=== PATIENT | female | born 1930 | race Asian ===

== ENCOUNTER 2017-01-07 20:21 | Inpatient (IN) | payer MEDICARE, OTHER ==
[~2017-01-07] VITALS: Ht 170.2 cm; Wt 68.1 kg
[~2017-01-07 20:21] MED LIST: ASPIRIN E.C. 8181 MG PO; CALCIUM 500 + D1 TA1 PO; CARDI-OMEGA1000 MG PO; CENTRUM SILVER1 CTB PO; CEPHALEXIN500 M1 PO; CLARITIN 1010 MG/TAB PO; CRESTOR20 MG PO; DETROL LA4 PO; GLUCOSAMINE500 M1 PO; HCTZ 25MG TAB25 MG PO; KONSYL0.52 GM PO; LUTEIN PO; MELATONIN1 M1 PO; METAMUCIL1 PDR PO; MICARDIS80 MG PO; NORFLEX 10100 MG/TAB PO; PRILOTC PO; TENORMIN 2525 MG/TAB PO; TOPROL XL100 MG PO; TRICOR145 MG PO; UNISOM25 MG PO; ZANTAC 150MG T150 MG PO
[2017-01-07 21:07] VITALS: O2SAT 99
[2017-01-07 22:00] LABS: PH 7 (5-8); SQUAMOUS EPITHELIAL 0-2 /hpf; URINE APPEARANCE Clear; URINE BACTERIA None Seen /hpf; URINE BILIRUBIN Negative (NEGATIVE); URINE BLOOD Negative (NEGATIVE); URINE COLOR Straw; URINE GLUCOSE Negative (NEGATIVE); URINE KETONE Negative (NEGATIVE); URINE RBC 0-2 /hpf; URINE UROBILINOGEN Negative (NEGATIVE); URINE WBC 0-2 /hpf
[2017-01-07 22:04] LABS: ADJUSTED CALCIUM 9.1 mg/dL (8.4-10.2); BILIRUBIN,TOTAL 0.9 mg/dL (0.0-1.0); CALCIUM 9.1 mg/dL (8.4-10.2); CREATININE, serum 0.87 mg/dL (0.52-1.25); MAGNESIUM 1.7 mg/dL (1.6-2.3); POTASSIUM 3.8 mmol/L (3.4-5.0); TOTAL PROTEIN 7.1 gm/dL (6.4-8.2)
[2017-01-07 22:10] VITALS: BP 150/81; PULSE 93; TEMP 96.9
[2017-01-07] MEDS ORDERED: ASPIRIN 81M81 MG/TA2 PO (22:17)
[2017-01-07] MEDS ORDERED: DETROL LA4 PO (22:18)
[2017-01-07] MEDS ORDERED: CENTRUM SILVER1 CTB PO (22:18)
[2017-01-07] MEDS ORDERED: OMEGA-3 1000 MG1 CAP PO (22:19)
[2017-01-07] MEDS ORDERED: KONSYL6 GM/DOSE PO (22:27)
[2017-01-07] MEDS ORDERED: GLUCOSAMINE 1000 PO (22:27)
[2017-01-07] MEDS ORDERED: LUTEIN6 MG PO (22:28)
[2017-01-07] MEDS ORDERED: CLARITIN 1010 MG/TAB PO (22:28)
[2017-01-07] MEDS ORDERED: MICARDIS40 MG PO (22:30)
[2017-01-07] MEDS ORDERED: METAMUCIL MUL0.52 GM PO (22:30)
[2017-01-07] MEDS ORDERED: NORFLEX 10100 MG/TAB PO (22:31)
[2017-01-07] MEDS ORDERED: OSCAL 500 TAB500 MG PO (22:31)
[2017-01-07] MEDS ORDERED: PRESERVISION1 SGL PO (22:32)
[2017-01-07] MEDS ORDERED: PRILOSEC 20MG20 MG PO (22:33)
[2017-01-07] MEDS ORDERED: ZANTAC 150MG T150 MG PO (22:33)
[2017-01-07 22:34] LABS: THYROID STIMULATING HORMONE 1.78 uIU/mL (0.465-4.680)
[2017-01-07] MEDS ORDERED: TOPROL XL100 MG PO (22:34)
[2017-01-07] MEDS ORDERED: UNISOM25 MG PO (22:34)
[2017-01-07] MEDS ORDERED: PRAVACHOL 40MG40 MG PO (22:35)
[2017-01-08] VITALS (689 sets, daily range): BP systolic 99–133; BP diastolic 67–75; PULSE 54–110; TEMP 97.3–98.7; O2SAT 79–100
[2017-01-08 05:27] LABS: BASO # 0.1 (0.0-0.2); EOS # 0.3 (0.0-0.7); EOS % 4.4 % (0-4.0); GRAN # 3.6 (1.4-6.5); GRAN % 60.1 % (42.2-75.2); HEMATOCRIT 39.5 % (37.0-47.0); HEMOGLOBIN 13.9 g/dl (12.5-16.0); LYMPH # 1.5 (1.2-3.4); LYMPH % 24.7 % (20.0-51.0); MEAN CELL VOLUME 92 fl (80.0-100.0); MEAN CORPUSCULAR HEMOGLOBIN 33 pg (27.0-31.0); MEAN CORPUSCULAR HGB CONC 35 g/dl (33.0-37.0); MEAN PLATELET VOLUME 9.7 fl (7.4-10.4); MONO # 0.6 (0.1-0.6); MONO % 9.6 % (1.7-9.3); PLATELET COUNT 186 K/mm3 (130-400); RED BLOOD COUNT 4.28 M/mm3 (4.10-5.30); REDCELL DISTRIBUTION WIDTH-CV 12.3 % (11.5-14.5)
[2017-01-08 05:44] LABS: CALCIUM 9.1 mg/dL (8.4-10.2); CREATININE, serum 0.77 mg/dL (0.52-1.25); POTASSIUM 3.8 mmol/L (3.4-5.0)
[2017-01-09] VITALS (565 sets, daily range): BP systolic 139–149; BP diastolic 78–93; PULSE 49–59; TEMP 97–98.4; O2SAT 81–100
[2017-01-09 08:28] LABS: HEMATOCRIT 39.4 % (37.0-47.0); HEMOGLOBIN 13.8 g/dl (12.5-16.0); MEAN CELL VOLUME 94 fl (80.0-100.0); MEAN CORPUSCULAR HEMOGLOBIN 33 pg (27.0-31.0); MEAN CORPUSCULAR HGB CONC 35 g/dl (33.0-37.0); MEAN PLATELET VOLUME 9.6 fl (7.4-10.4); PLATELET COUNT 172 K/mm3 (130-400); RED BLOOD COUNT 4.21 M/mm3 (4.10-5.30); REDCELL DISTRIBUTION WIDTH-CV 12.4 % (11.5-14.5); WHITE BLOOD COUNT 6.2 K/mm3 (4.8-10.8)
[2017-01-09 08:35] LABS: CALCIUM 9.1 mg/dL (8.4-10.2); CREATININE, serum 0.76 mg/dL (0.52-1.25)
[2017-01-09] MEDS ORDERED: PACERONE200 MG PO (15:45)
[2017-01-09] MEDS ORDERED: TOPROL XL100 MG PO (15:48)
== END 2017-01-09 17:00 | disposition home or self-care (01) | DRG 310 ==
LOC: ICU 20:21
PROVIDERS: Family Medicine; Internal Medicine
DX: I47.2 Ventricular tachycardia (principal); I10 Essential (primary) hypertension; E78.5 Hyperlipidemia, unspecified; Z87.891 Personal history of nicotine dependence; Z95.810 Presence of automatic (implantable) cardiac defibrillator; X30.XXXA Exposure to excessive natural heat, initial encounter
CPT/HCPCS: 99222-AI; 99233-AI; 99239; J0282; J1650; J3475; J7060

== ENCOUNTER 2017-07-29 10:28 | Inpatient (IN) | payer MEDICARE, OTHER ==
[~2017-07-29] VITALS: Ht 167.6 cm; Wt 63.5 kg
[~2017-07-29 10:28] MED LIST changes: +ASPIRIN 81M81 MG/TA2 PO; +GLUCOSAMINE 1000 PO; +KONSYL6 GM/DOSE PO; +LUTEIN6 MG PO; +METAMUCIL MUL0.52 GM PO; +MICARDIS40 MG PO; +OMEGA-3 1000 MG1 CAP PO; +OSCAL 500 TAB500 MG PO; +PACERONE200 MG PO; +PRAVACHOL 40MG40 MG PO; +PRESERVISION1 SGL PO; +PRILOSEC 20MG20 MG PO
[2017-07-29 12:16] VITALS: BP 98/56; PULSE 109; TEMP 97.4
[2017-07-29] MEDS ORDERED: OSCAL W/VIT D250 MG PO (12:34)
[2017-07-29] MEDS ORDERED: HCTZ 25MG TAB25 MG PO (12:36)
[2017-07-29] MEDS ORDERED: LUTEIN20 M1 PO (12:37)
[2017-07-29] MEDS ORDERED: MASON NATURAL1200 MG PO (12:59)
[2017-07-29] MEDS ORDERED: GLUCOSAMINE MSM1 TAB PO (12:59)
[2017-07-29] MEDS ORDERED: UNISOM25 MG PO (13:00)
[2017-07-29] MEDS ORDERED: CLARITIN 1010 MG/TAB PO (13:01)
[2017-07-29] MEDS ORDERED: LOPRESSOR100 MG PO (13:03)
[2017-07-29] MEDS ORDERED: MUCUS RELIEF200 MG PO (13:05)
[2017-07-29] MEDS ORDERED: TRIAMCINOLONE A15 G1 TP (13:05)
[2017-07-29] MEDS ORDERED: LASIX 20MG TABL20 MG PO (13:06)
[2017-07-29] MEDS ORDERED: SINGULAIR 110 MG/TAB PO (13:06)
[2017-07-29] MEDS ORDERED: NORVASC 5MG5 MG/TAB PO (13:07)
[2017-07-29] MEDS ORDERED: CELEBREX 200MG200 MG PO (13:07)
[2017-07-29] MEDS ORDERED: FLONASE NASAL S16 GM NS (13:07)
[2017-07-29] MEDS ORDERED: TUSS PO (13:08)
[2017-07-29] MEDS ORDERED: TESSALON P100 MG/CAP PO (13:08)
[2017-07-29] MEDS ORDERED: ROXICODONE 55 MG/TAB PO (13:09)
[2017-07-29 15:47] LABS: HEMOGLOBIN 13.2 g/dl (12.5-16.0)
[2017-07-29 16:17] VITALS: BP 103/64; PULSE 110; TEMP 97.9
[2017-07-29 17:32] LABS: COLLECTION METHOD CLEAN CATCH
[2017-07-29 17:36] LABS: PH 5 (5-8); URINE APPEARANCE Clear; URINE BILIRUBIN Negative (NEGATIVE); URINE BLOOD Negative (NEGATIVE); URINE COLOR Amber; URINE GLUCOSE Negative (NEGATIVE); URINE KETONE Trace (NEGATIVE); URINE LEUKOCYTE ESTERASE Trace (NEGATIVE); URINE NITRATE Negative (NEGATIVE); URINE PROTEIN(semi-quant) Negative (NEGATIVE)
[2017-07-29 17:47] LABS: MUCOUS Present /lpf; SQUAMOUS EPITHELIAL 0-2 /hpf; URINE RBC None Seen /hpf
[2017-07-29 19:48] VITALS: BP 103/58; PULSE 117; TEMP 97.3
[2017-07-29 23:26] LABS: HEMOGLOBIN 12.1 g/dl (12.5-16.0)
[2017-07-29 23:27] VITALS: BP 88/50; PULSE 117; TEMP 97.7
[2017-07-29 23:28] LABS: HEMATOCRIT 36.6 % (37.0-47.0)
[2017-07-30] VITALS (7 sets, daily range): BP systolic 95–129; BP diastolic 47–54; PULSE 74–84; TEMP 97.4–98.3
[2017-07-30 06:55] LABS: BASO # 0.1 (0.0-0.2); EOS # 0.2 (0.0-0.7); GRAN # 3.5 (1.4-6.5); GRAN % 69.9 % (42.2-75.2); HEMATOCRIT 37.6 % (37.0-47.0); HEMOGLOBIN 12.1 g/dl (12.5-16.0); LYMPH # 0.8 (1.2-3.4); LYMPH % 16.5 % (20.0-51.0); MEAN CELL VOLUME 104 fl (80.0-100.0); MEAN CORPUSCULAR HEMOGLOBIN 34 pg (27.0-31.0); MEAN CORPUSCULAR HGB CONC 32 g/dl (33.0-37.0); MEAN PLATELET VOLUME 9.3 fl (7.4-10.4); MONO # 0.4 (0.1-0.6); MONO % 8.2 % (1.7-9.3); PLATELET COUNT 267 K/mm3 (130-400); RED BLOOD COUNT 3.61 M/mm3 (4.10-5.30); REDCELL DISTRIBUTION WIDTH-CV 13.8 % (11.5-14.5)
[2017-07-30 07:19] LABS: BILIRUBIN,TOTAL 0.8 mg/dL (0.0-1.0); CALCIUM 8.3 mg/dL (8.4-10.2); CREATININE, serum 1.3 mg/dL (0.52-1.25); MAGNESIUM 2.2 mg/dL (1.6-2.3); POTASSIUM 4.7 mmol/L (3.4-5.0)
[2017-07-30 15:40] LABS: HEMATOCRIT 34.9 % (37.0-47.0); HEMOGLOBIN 11.5 g/dl (12.5-16.0)
[2017-07-30 23:18] LABS: HEMOGLOBIN 11.9 g/dl (12.5-16.0)
[2017-07-31 03:55] VITALS: BP 126/55; PULSE 78; TEMP 98.2
[2017-07-31 06:50] LABS: BASO # 0.1 (0.0-0.2); EOS # 0.2 (0.0-0.7); EOS % 3.7 % (0-4.0); GRAN # 3.4 (1.4-6.5); GRAN % 70.8 % (42.2-75.2); HEMATOCRIT 33.7 % (37.0-47.0); HEMOGLOBIN 10.8 g/dl (12.5-16.0); LYMPH # 0.8 (1.2-3.4); LYMPH % 16.3 % (20.0-51.0); MEAN CELL VOLUME 102 fl (80.0-100.0); MEAN CORPUSCULAR HEMOGLOBIN 33 pg (27.0-31.0); MEAN CORPUSCULAR HGB CONC 32 g/dl (33.0-37.0); MONO # 0.4 (0.1-0.6); MONO % 7.6 % (1.7-9.3); PLATELET COUNT 240 K/mm3 (130-400); RED BLOOD COUNT 3.29 M/mm3 (4.10-5.30); REDCELL DISTRIBUTION WIDTH-CV 13.9 % (11.5-14.5)
[2017-07-31 06:59] LABS: CALCIUM 8.2 mg/dL (8.4-10.2); CREATININE, serum 0.75 mg/dL (0.52-1.25); POTASSIUM 4.2 mmol/L (3.4-5.0)
[2017-07-31 07:15] VITALS: BP 134/58; PULSE 80; TEMP 97.9
[2017-07-31 11:36] VITALS: BP 126/48; PULSE 87; TEMP 97.3
[2017-07-31] MEDS ORDERED: LOPRESSOR 225 MG/TAB PO (14:32)
[2017-07-31] MEDS ORDERED: MICARDIS20 MG PO (14:32)
[2017-07-31 15:40] LABS: HEMATOCRIT 34.3 % (37.0-47.0); HEMOGLOBIN 11.4 g/dl (12.5-16.0)
[2017-07-31 16:23] VITALS: BP 127/52; PULSE 93; TEMP 98.3
== END 2017-07-31 19:34 | disposition home health service (06) | DRG 682 ==
LOC: MEDICAL 10:28
PROVIDERS: Family Medicine; Nurse Practitioner Family; Physician Assistant
DX: N17.9 Acute kidney failure, unspecified (principal); K85.90 Acute pancreatitis without necrosis or infection, unspecified; E87.2 Acidosis; K92.1 Melena; K86.2 Cyst of pancreas; E87.5 Hyperkalemia; E86.0 Dehydration; I25.10 Atherosclerotic heart disease of native coronary artery without angina pectoris; F03.90 Unspecified dementia, unspecified severity, without behavioral disturbance, psychotic disturbance, mood disturbance, and anxiety; Z95.810 Presence of automatic (implantable) cardiac defibrillator; S22.32XD Fracture of one rib, left side, subsequent encounter for fracture with routine healing; W19.XXXD Unspecified fall, subsequent encounter; Z68.22 Body mass index [BMI] 22.0-22.9, adult
CPT/HCPCS: 99222-AI; 99232-AI; 99239; A9284; C9113; J7030

== ENCOUNTER 2018-06-28 12:14 | Day surgery (SDC) | payer MEDICARE, OTHER ==
[~2018-06-28] VITALS: Ht 167.6 cm; Wt 61.2 kg
[~2018-06-28 12:14] MED LIST changes: +CELEBREX 200MG200 MG PO; +FLONASE NASAL S16 GM NS; +GLUCOSAMINE MSM1 TAB PO; +LASIX 20MG TABL20 MG PO; +LOPRESSOR 225 MG/TAB PO; +LOPRESSOR100 MG PO; +LUTEIN20 M1 PO; +MASON NATURAL1200 MG PO; +MICARDIS20 MG PO; +MUCUS RELIEF200 MG PO; +NORVASC 5MG5 MG/TAB PO; +OSCAL W/VIT D250 MG PO; +ROXICODONE 55 MG/TAB PO; +SINGULAIR 110 MG/TAB PO; +TESSALON P100 MG/CAP PO; +TRIAMCINOLONE A15 G1 TP; +TUSS PO
[2018-06-28] MEDS ORDERED: LOPRESSOR 225 MG/TAB PO (13:55)
[2018-06-28 13:56] VITALS: BP 150/86; PULSE 89; TEMP 98.4
[2018-06-28] MEDS ORDERED: PACERONE200 MG PO (13:56)
[2018-06-28 14:08] LABS: PROTHROMBIN TIME 11.8 SECONDS (9.7-12.8)
--- NOTE | 2018-06-28 14:19 | NUR ---
Initial visit; Patient requestes prayer prior to surgical procedure. Block Stacker offered prayer and encouragement.
[2018-06-28 14:45] VITALS: BP 108/62; PULSE 81; TEMP 98.4
--- NOTE | 2018-06-28 14:45 | NUR ---
Procedure complete. Pt denies pain and needs at this time. Resting. VSS
[2018-06-28 15:00] VITALS: BP 110/72; PULSE 83; TEMP 98.4
[2018-06-28 15:15] VITALS: BP 110/60; PULSE 78; TEMP 98.4
[2018-06-28 15:45] VITALS: BP 102/60; PULSE 78; TEMP 98.4
[2018-06-28 16:00] VITALS: BP 102/60; PULSE 78; TEMP 98.4
--- NOTE | 2018-06-28 16:24 | NUR ---
VSS. Ate lunch. INT discontinued intact.
--- NOTE | 2018-06-28 16:25 | NUR ---
Discharge instructions given to Health Aide. Transferred to private car by
== END 2018-06-28 16:26 | disposition home or self-care (01) ==
LOC: COL.CAR 12:14
PROVIDERS: Internal Medicine Interventional Cardiology
DX: I48.91 Unspecified atrial fibrillation (principal); I50.32 Chronic diastolic (congestive) heart failure; I48.3 Typical atrial flutter; I35.0 Nonrheumatic aortic (valve) stenosis; I10 Essential (primary) hypertension; Z79.899 Other long term (current) drug therapy; Z95.810 Presence of automatic (implantable) cardiac defibrillator; K21.9 Gastro-esophageal reflux disease without esophagitis; M17.12 Unilateral primary osteoarthritis, left knee; Z82.3 Family history of stroke; Z80.9 Family history of malignant neoplasm, unspecified; Z87.891 Personal history of nicotine dependence
CPT/HCPCS: G9654; J2250; J2704; J7030